=== PATIENT | female | born 1970 | race Caucasian/White ===

== ENCOUNTER → 2020-12-12 | Outpatient (CLI) | payer OTHER ==
[~2020-12-12] MED LIST: VIBRAMYCIN100 MG PO
== END ==
LOC: KOH-I 11:15
DX: N17.9 Acute kidney failure, unspecified (principal); N28.9 Disorder of kidney and ureter, unspecified; N28.81 Hypertrophy of kidney
CPT/HCPCS: 76775

== ENCOUNTER 2021-02-15 09:24 | Emergency (ER) | payer OTHER ==
[2021-02-15 10:22] LABS: RED BLOOD COUNT 2.71 M/UL (4.00-5.10); WHITE BLOOD COUNT 1.6 K/UL (4.5-11.0)
[2021-02-15] MEDS ORDERED: VIBRAMYCIN100 MG PO (12:06)
== END 2021-02-15 12:35 | disposition home or self-care (01) ==
LOC: ER1 09:24
PROVIDERS: Physician Assistant
DX: Z23 Encounter for immunization (principal); U07.1 COVID-19; J12.82 Pneumonia due to coronavirus disease 2019; D61.818 Other pancytopenia; I12.9 Hypertensive chronic kidney disease with stage 1 through stage 4 chronic kidney disease, or unspecified chronic kidney disease; N18.9 Chronic kidney disease, unspecified; E11.22 Type 2 diabetes mellitus with diabetic chronic kidney disease
CPT/HCPCS: 71045; 80053; 85025; 96374; 99283; J2405; M0245

== ENCOUNTER 2021-03-01 16:21 | Emergency (ER) | payer OTHER | END 2021-03-01 18:19 | disposition home or self-care (01) | LOC: ER1 16:21 | DX: S39.012A Strain of muscle, fascia and tendon of lower back, initial encounter (principal); S20.211A Contusion of right front wall of thorax, initial encounter; S80.11XA Contusion of right lower leg, initial encounter; S62.112A Displaced fracture of triquetrum [cuneiform] bone, left wrist, initial encounter for closed fracture; E11.9 Type 2 diabetes mellitus without complications; I10 Essential (primary) hypertension; Z88.5 Allergy status to narcotic agent; Z88.8 Allergy status to other drugs, medicaments and biological substances; V49.40XA Driver injured in collision with unspecified motor vehicles in traffic accident, initial encounter; Y92.410 Unspecified street and highway as the place of occurrence of the external cause | CPT/HCPCS: 71046; 72100; 73110; 73130; 73590; 99283; Q0177 ==

== ENCOUNTER → 2021-06-07 | Outpatient (CLI) | payer OTHER | LOC: KOH-I 10:34 | DX: U07.1 COVID-19 (principal); R91.8 Other nonspecific abnormal finding of lung field | CPT/HCPCS: 71046 ==

== ENCOUNTER → 2021-11-06 | Outpatient (CLI) | payer OTHER | LOC: KOH-I 08:35 | DX: M25.561 Pain in right knee (principal); M25.562 Pain in left knee; M50.30 Other cervical disc degeneration, unspecified cervical region | CPT/HCPCS: 72040; 73560 ==